=== PATIENT | male | born 1985 | race Two or more races ===

== ENCOUNTER 2017-01-05 22:07 | Emergency (ER) | payer SELFPAY ==
[2017-01-06 00:32] VITALS: BP 136/90
== END 2017-01-06 00:32 | disposition home or self-care (01) ==
LOC: ED 22:07
DX: S86.811A Strain of other muscle(s) and tendon(s) at lower leg level, right leg, initial encounter (principal); R03.0 Elevated blood-pressure reading, without diagnosis of hypertension; W19.XXXA Unspecified fall, initial encounter; Y93.89 Activity, other specified; Y92.89 Other specified places as the place of occurrence of the external cause; Y99.8 Other external cause status
CPT/HCPCS: J1885